=== PATIENT | male | born 1955 | race Caucasian/White ===

== ENCOUNTER → 2020-11-02 15:53 | Outpatient (BNVA) | payer SELFPAY | PROVIDERS: PCP Pediatrics; Visit Provider Family Medicine Adult Medicine ==

== ENCOUNTER → 2020-11-18 13:25 | Outpatient (BNVA) | payer OTHER, SELFPAY | PROVIDERS: PCP Pediatrics; Visit Provider Family Medicine Adult Medicine ==

== ENCOUNTER → 2020-12-21 15:41 | Outpatient (BNVA) | payer OTHER, SELFPAY | PROVIDERS: PCP Pediatrics; Visit Provider Family Medicine Adult Medicine | DX: Z98.890 Other specified postprocedural states (principal) ==

== ENCOUNTER → 2021-01-18 16:21 | Outpatient (BNVA) | payer OTHER, SELFPAY | PROVIDERS: PCP Pediatrics; Visit Provider Family Medicine Adult Medicine | DX: Z98.890 Other specified postprocedural states (principal) ==

== ENCOUNTER → 2021-03-01 15:56 | Outpatient (BNVA) | payer OTHER, SELFPAY | PROVIDERS: PCP Pediatrics; Visit Provider Family Medicine Adult Medicine | DX: Z98.890 Other specified postprocedural states (principal) ==

== ENCOUNTER → 2021-03-03 11:03 | Outpatient (BNVA) | payer OTHER, SELFPAY | PROVIDERS: PCP Pediatrics; Visit Provider Family Medicine Adult Medicine ==

== ENCOUNTER → 2021-03-31 14:37 | Outpatient (BNVA) | payer OTHER, SELFPAY | PROVIDERS: PCP Pediatrics; Visit Provider Family Medicine Adult Medicine ==

== ENCOUNTER 2021-07-26 08:28 | Emergency (ER) | payer OTHER, SELFPAY ==
[2021-07-26 08:52] VITALS: BP 142/87; PULSE 74; RESP 18; TEMP 36.6; O2SAT 98; BMI 28.6
--- NOTE | 2021-07-26 10:34 | ED_ITS ---
HPI - General Adult General Chief complaint: ETOH/Substance Use Stated complaint: withdrawal Time Seen by Provider: 07/26/21 10:34 Source: patient Mode of arrival: ambulatory Limitations: no limitations History of Present Illness HPI narrative: 66 y/o male presents to the ER with nausea, diarrhea, chills and subjective fevers in the setting of running out of his previously prescribed buprenorphine a few days ago. He reports being on chronic opiates for the last 18 years, most recently he was on buprenorphine 8 mg 2 times a day for the last 4 years through the pain clinic. He reports missing a pill count last week because he was in [place] with a broken down car, and no further prescription was provided from the pain clinic. He reports making his 30 day supply of buprenorphine from June 10 last until about last week. He reports also having 6 pills of 15 mg oxycodone from a previous neck surgery left over at home which he took 2 doses of yesterday to help him with his withdrawal symptoms. He has been trying to get in with various doctors to help him with ongoing prescription and has been unsuccessful. MD complaint: Opiate withdrawal Onset (ago): day(s) Severity: moderate Pain Consistency: constant Relieving factors: medication Exacerbating factors: none Associated symptoms: diaphoresis, fever/chills, headaches and nausea/vomiting Treatments prior to arrival: none Related Data Home Medications Medication Instructions Recorded Confirmed aspirin 81 mg chewable tablet 81 mg PO DAILY 11/02/20 03/31/21 metoprolol succinate 50 mg 50 mg PO DAILY 11/02/20 03/31/21 tablet,extended release 24 hr omeprazole 40 mg capsule,delayed 40 mg PO DAILY 11/02/20 03/31/21 release atorvastatin 40 mg tablet 40 mg PO BEDTIME 11/18/20 03/31/21 Previous Rx's Medication Instructions Recorded methocarbamol 750 mg tablet 750 mg PO BEDTIME 90 Days #90 tab 11/18/20 buprenorphine HCl 8 mg sublingual 8 mg SUBLINGUAL Q12H 15 Days #30 04/27/21 tablet tab buprenorphine HCl 450 mcg buccal 450 mcg BUCCAL Q12H 15 Days #30 ea 07/06/21 film (Belbuca) buprenorphine 8 mg-naloxone 2 mg 1 film SUBLINGUAL BID #14 ea 07/26/21 sublingual film (Suboxone) Allergies Allergy/AdvReac Type Severity Reaction Status Date / Time No Known Allergies Allergy Verified 03/31/21 14:57 Review of Systems Review of Systems: Constitutional: + Fever, + Chills ENT/Mouth: No sore throat, No Rhinorrhea, No Swallowing Difficulty Cardiovascular: No Chest Pain, No SOB Respiratory: No Cough, No Sputum, No Wheezing, No dyspnea Gastrointestinal: + Nausea, No Vomiting, + Diarrhea, No abdominal Pain Musculoskeletal: No joint pain, No Myalgias Skin: No Skin Lesions, No rash Neuro: No Weakness, No Numbness, No Dizziness, No Headache Psych: + Anxiety/Panic, + Depression, No SI or HI Heme/Lymph: No Bruising, No Lymphadenopathy PMFSH Past Medical History Medical History (Updated 07/26/21 @ 11:21 by BURKE Adams) Left lumbar radiculopathy Surgical History (Updated 03/03/21 @ 11:30 by Adi Taylor DO) History of cervical spinal surgery History of lumbar laminectomy Social History Social History Advance Directives: No Physical Exam Vital Signs: Vital Signs: Last Vital Signs Temp 97.9 F 07/26/21 08:52 Pulse 74 07/26/21 08:52 Resp 18 07/26/21 08:52 BP 142/87 H 07/26/21 08:52 Pulse Ox 98 07/26/21 08:52 Body Mass Index 28.6 Appearance: Alert. Oriented X3. No acute distress. Eyes: Pupils equal, round and reactive to light. ENT: Pharynx normal. Neck: Normal inspection. Neck supple. CVS: Normal heart rate and rhythm. Pulses normal. Respiratory: No respiratory distress. Breath sounds normal. Abdomen: Soft and nontender. +BS x4 Skin: Skin warm and dry. Normal skin color. Normal skin turgor. No rashes. Extremities: No lower extremity edema. Neuro: Oriented X 3. No motor deficit. No sensory deficit. Course Course Course Narrative: 66-year-old male with a history opioid use disorder on chronic fever nor feeding for the last 4 years presents to the ER requesting a new prescription for buprenorphine. He has been experiencing withdrawal symptoms at home including nausea, diarrhea, feeling hot and cold and generally unwell. He is interested agreeable to starting with the Suboxone clinic here. Will talk to Janeth Grant RN who works as [employer] Funez NP to help with facilitation of this. Urine toxicology ordered. Reevaluation(s) Reevaluation #1: U tox was positive for fentanyl, rib itchy with, and benzodiazepines. He adamantly denies fentanyl use. Denies IV drug use. He reports having left over ?benzo? in his medicine cabinet. Agata Funez and Janethedwin grant have been down to talkthe patient several times. Agata Funez has sent a prescription for Suboxone to his pharmacy. Will hold off on dosing now with concern for possible initiation of worsening withdrawal. Patient agreeable. He was given multiple resources and list of providers for follow-up. He agrees to follow-up. He is stable for discharge home. Medical Decision Making Lab Data Labs: Lab Results 07/26/21 Range/Units 11:17 Urine Opiates Screen Not Detected (Not Detect) Urine Fentanyl Screen POSITIVE H (Not Detect) Ur Barbiturates Screen POSITIVE H (Not Detect) Ur Phencyclidine Scrn Not Detected (Not Detect) Ur Amphetamines Screen Not Detected (Not Detect) U Benzodiazepines Scrn POSITIVE H (Not Detect) Urine Cocaine Screen Not Detected (Not Detect) U Marijuana (THC) Screen Not Detected (Not Detect) Discharge Plan Discharge Clinical Impression: Opiate dependence, continuous Patient Disposition: Home, Self-Care Instructions: Opioid Withdrawal (ED), Opioid Use Disorder (ED) Additional Instructions: Your urine toxicology was positive for fentanyl, barbiturates, and benzodiazepines. Opiates were not detected making your report of taking previously prescribed oxycodone questionable. Do not by any opiates off the street, most contain fentanyl. They can kill you. Take the prescribed Suboxone as directed. Follow-up with the providers on the list that was provided to you. If you develop new or worsening symptoms call 911 or come back to the ER for further evaluation. Prescriptions: New buprenorphine-naloxone [Suboxone] 8-2 mg film 1 film sublingual BID Qty: 14 RF: 0 No Action Belbuca 450 mcg film 450 mcg buccal Q12H 15 Days Qty: 30 RF: 0 atorvastatin 40 mg tablet 40 mg PO BEDTIME RF: 0 methocarbamol 750 mg tablet 750 mg PO BEDTIME 90 Days Qty: 90 RF: 1 metoprolol succinate 50 mg tablet extended release 24 hr 50 mg PO DAILY RF: 0 omeprazole 40 mg capsule,delayed release(DR/EC) 40 mg PO DAILY RF: 0 aspirin 81 mg tablet,chewable 81 mg PO DAILY RF: 0 buprenorphine HCl 8 mg tablet, sublingual 8 mg sublingual Q12H 15 Days Qty: 30 RF: 0 Referrals: Tosha Covarrubias APRN [Primary Care Provider] - 2 days
[2021-07-26 11:48] LABS: Amphetamine Screen Urine Not Detected (Not Detect); Barbiturates, Urine POSITIVE (Not Detect); Benzodiazepines Screen Urine POSITIVE (Not Detect); Cannabinoid Screen Urine Not Detected (Not Detect); Cocaine Screen Urine Not Detected (Not Detect); Fentanyl, urine POSITIVE (Not Detect); Opiate Screen Urine Not Detected (Not Detect); Phencyclidine Screen Urine Not Detected (Not Detect)
[2021-07-26] MEDS: Naloxone HCl Nasal TAKE HOME 4 MG SPRAY NOSTRILALT (12:46)
--- NOTE | 2021-07-26 13:37 | HO.ADDICT_ITS ---
History of Present Illness Date of Service: 07/26/2021 Chief Complaint: withdrawal Reason for Consult: opioid withdrawal Requesting physician: Isa Wells Discussed with referring provider: Yes Sources of Information: patient interviewed and chart reviewed HPI Narrative: Patient is a 66 year old male who presented to the ED reporting opioid withdrawal. He reports he was previously being treated at [facility] pain management center and was discharged due to missed pill count. After reviewing chart is showed that patient was suspended from the practice in April 2021 and was given a 2 week rx. of suboxone. Per [facility] patient also filled 2 week rx of Belbuca and 2 week rx of suboxone on 06/10. Today patient reporting he last had suboxone on Sunday, 07/19. Since that time he states he has been managing withdrawal sx taking old medications from his medicine cabinet. Initially reporting only taking an old percocet prescription, then acknowledging benzodiazepines, and possibly phenobarbital after UDS showed both of these substances along with fentanyl. He denied any fentanyl use. Denies purchasing any medications. States last percocet was on Sunday and last benzodiazepine was yesterday. He is reporting anxiety, nausea, chills, diaphoresis, vomiting, loose stools. Discussed treatment options, including restarting suboxone. He reports desire to restart subxone and wishes to continue with a pain management provider. Review of Systems Constitutional: Reports as per HPI Diagnostics Vital Signs (24Hr): Vital Signs - 24 hr 07/26/21 08:52 Temperature 97.9 F Pulse Rate 74 Respiratory Rate 18 Blood Pressure 142/87 H Pulse Oximetry 98 Body Mass Index 28.6 Labs Labs: Laboratory Results - last 48 hr 07/26/21 11:17 Urine Opiates Screen Not Detected Urine Fentanyl Screen POSITIVE H Ur Barbiturates Screen POSITIVE H Ur Phencyclidine Scrn Not Detected Ur Amphetamines Screen Not Detected U Benzodiazepines Scrn POSITIVE H Urine Cocaine Screen Not Detected U Marijuana (THC) Screen Not Detected Mental Status Exam Mental Status Exam Patient Appearance: Appropriate Patient Orientation: Person, Place, Time and Situation Level of Consciousness: Awake, Appropriate and Alert Patient Behavior: Appropriate and Anxious Mood Description: Anxious Affect Description: Anxious Thought Process: Linear Judgement: Fair Medications Allergies Allergies Allergy/AdvReac Type Severity Reaction Status Date / Time No Known Allergies Allergy Verified 03/31/21 14:57 Assessment & Plan Assessment & Plan (1) Opiate dependence, continuous: Status: Acute Code(s): F11.20 - Opioid dependence, uncomplicated Assessment and Plan: * One week suboxone rx provided. Reinforced importance of not restarting at full dose if there is a chance opioids are still on board. Patietn aware of risk of precipitated withdrawal * harm reduction discussion including take home narcan kit * recovery support rn provided patient with list of local [facility] providers. Encouraged patient to call providers and set up intake JASON. while he wishes to remain with pain managmemt providers, there is a chance he will not be seen within a week and they may not wish to continue suboxone. Patient verbalized understanding and agreeable with plan. I spent ___35___ minutes with the patient and/or on the patient floor today, greater than?50% of which was spent counseling/coordinating care. [facility] Past Medical History Medical History (Updated 07/26/21 @ 11:21 by BURKE Adams) Left lumbar radiculopathy Surgical History Surgical History (Updated 03/03/21 @ 11:30 by Adi Taylor DO) History of cervical spinal surgery History of lumbar laminectomy Social History Social History Advance Directives: No
== END 2021-07-26 12:48 | disposition home or self-care (01) ==
PROVIDERS: Nurse Practitioner Psychiatric/Mental Health; Physician Assistant; Emergency Provider Emergency Medicine Emergency Medical Services; PCP Nurse Practitioner Adult Health
DX: F11.23 Opioid dependence with withdrawal (principal); Z79.899 Other long term (current) drug therapy
CPT/HCPCS: 36415; 80307; 99283